=== PATIENT | female | born 2000 | race Two or more races ===

== ENCOUNTER 2024-10-22 02:48 | Inpatient (IN) | payer OTHER ==
[~2024-10-22] VITALS: Ht 154.9 cm; Wt 58.0 kg
--- NOTE | 2024-10-22 03:35 | ED.PDOC ---
GI ASSESSMENT HPI Comments 24 year old female presents to the ED with a chief complaint of abdominal pain onset yesterday (10/21/24). Patient states she has been experiencing yellow diarrhea for the past 4 days, woke up last night around 11:30, experiencing sharp, stabbing LLQ pain. Patient states she has been sober from Fentanyl for the past 3 weeks, was prescribed Suboxone, ran out of prescription 4 days ago. PMHx seizures. Denies chest pain, nausea, vomiting, shortness of breath, dysuria, hematuria, fever, chills. No other symptoms or modifying factors present at this time. Chief Complaint: Abdominal Pain Time Seen by MD: 03:20 Reviewed Notes: Medications, Allergies Allergies: Coded Allergies: No Known Drug Allergy (Verified Allergy, Unknown, 10/22/24) Information Source: Patient Mode of Arrival: Ambulatory Timing: Hours Duration: Intermittent Prehospital treatment: None Quality: Sharp, Stabbing Vomitus: None Stool: Yellow Severity: Mild Recent: None Recent Hx of: None Pain Location: LLQ Modifying Factors: Nothing Associated sign and symptoms: Diarrhea, Abdominal Pain Vital Signs Vital Signs Date Time Temp Pulse Resp B/P (MAP) Pulse Ox O2 Delivery O2 Flow Rate FiO2 10/22/24 05:32 121/98 10/22/24 04:29 100 16 96 Room Air* 0 21 10/22/24 04:29 98.9 98.9 Physical Exam General: Awake, alert and oriented. Patient appears uncomfortable Skin: Skin in warm, dry and intact. Appropriate color for ethnicity. HEENT: The head is normocephalic and atraumatic. Conjunctivae are clear without exudates or hemorrhage. Sclera is non-icteric. EOM are intact. No signs of nystagmus. Eyelids are normal in appearance without swelling or lesions. Oral mucosa is pink and moist Neck: The neck is supple with normal range of motion. No JVD. Cardiac: Heart rate and rhythm are normal. No murmurs, gallops, or rubs are auscultated. Respiratory: No signs of respiratory distress. Lung sounds are clear in all lobes bilaterally without rales, ronchi, or wheezes. Abdominal: Abdomen is soft, generally tender. Bowel sounds are present and normoactive in all four quadrants. Extremities: Upper and lower extremities are atraumatic in appearance without deformity or edema. Neurological: The patient is awake, alert and oriented to person, place, and time with normal speech. Speech is clear. There is no facial asymmetry. Psychiatric: Appropriate mood and affect. Good judgement and insight. No visual or auditory hallucinations. Review of Systems: REVIEW OF SYSTEMS: No fever, no chills, or fatigue HEENT: No sore throat, no earache, no congestion, no neck pain. Cardiac: No chest pain. No palpitations. Lungs: No shortness of breath, no cough. GI: Positive nausea, positive vomiting, positive diarrhea, no constipation, positive abdominal pain, no blood in vomit or stool : No dysuria, frequency, or urgency. No hematuria. Musculoskeletal: No joint pain , no joint swelling, no extremity edema. Skin: No rash, no itching. Neuro: No headache, no dizziness, no weakness Past Medical History PAST MEDICAL HISTORY: Denies Surgical History: Denies all surgeries CAT AND DOG BATHER History: No Pertinent CAT AND DOG BATHER History Social History Smoker: Non-Smoker Alcohol: Denies ETOH Use Drugs: Other Lives In: Home Was a procedure done? Was a procedure done?: No GI differential Dx Other Differential Diagnosis Differential diagnoses considered include: Opiate withdrawal, Abdominal aortic aneurysm, UT, esophageal rupture, intestinal obstruction, mesenteric ischemia, perforated viscus or solid organ rupture, CHF with hepatomegaly, pneumonia, abscess, appendicitis, biliary disease, diverticulitis, gastritis, gastroenteritis, hepatitis, hernia, inflammatory bowel disease, pancreatitis, peptic ulcer disease, urinary tract infection, ureteral colic, constipation, GERD, irritable syndrome, abdominal wall pain, nonspecific abdominal pain, herpes zoster. Also ruptured ectopic , ovarian torsion/cyst, tubo- ovarian abscess, PID, endometriosis, mittleschmerz. X-Ray, Labs, Meds, VS Vital Signs Date Time Temp Pulse Resp B/P (MAP) Pulse Ox O2 Delivery O2 Flow Rate FiO2 10/22/24 05:32 121/98 10/22/24 04:29 100 16 96 Room Air* 0 21 10/22/24 04:29 98.9 100 16 121/98 (106) 100 98.9 10/22/24 02:54 98.9 108 22 136/92 (107) 98 Lab Test 10/22/24 04:31 10/22/24 03:19 Range/Units Urine Color Yellow Yellow Urine Clarity Turbid H Clear Urine pH 6.5 5.0-9.0 Urine Specific [place] 1.031 1.001-1.035 Urine Protein 1+ H Negative Urine Ketones Trace Negative Urine Blood 1+ H Negative /uL Urine Nitrite Negative Negative Urine Bilirubin Negative Negative Urine Urobilinogen 2 H Negative mg/dL Urine Leukocyte Esterase Negative Negative /uL Urine RBC 6 0 - 4 /hpf Urine Microscopic WBC 3 0-5 /HPF Urine Squamous Epithelial Cells Mod <5 /hpf Urine Calcium Oxalate Crystals Few None Seen Urine Bacteria Few H None Seen /hpf Urine Mucus Moderate None Seen Urine Glucose Normal Normal mg/dL Urine Test Negative Negative White Blood Count 16.4 H 4.4-10.8 10^3/uL Red Blood Count 4.82 4.0-5.20 10^6/uL Hemoglobin 15.2 12.2-16.2 g/dL Hematocrit 46.0 36.0-46.0 % Mean Corpuscular Volume 95.5 80.0-100.0 fL Mean Corpuscular Hemoglobin 31.6 28.0-32.0 pg Mean Corpuscular Hemoglobin Concent 33.1 32.0-36.0 g/dL Red Cell Distribution Width 13.1 11.8-14.3 % Platelet Count 244 140-450 10^3/uL Mean Platelet Volume 8.9 6.9-10.8 fL Neutrophils (%) (Auto) 84.5 H 37.0-80.0 % Lymphocytes (%) (Auto) 9.5 L 10.0-50.0 % Monocytes (%) (Auto) 5.7 0.0-12.0 % Eosinophils (%) (Auto) 0.2 0.0-7.0 % Basophils (%) (Auto) 0.1 0.0-2.0 % Neutrophils # (Auto) 13.8 H 1.6-8.6 10 ^3/uL Lymphocytes # (Auto) 1.6 0.4-5.4 10 ^3/uL Monocytes # (Auto) 0.9 0-1.3 10 ^3/uL Eosinophils # (Auto) 0 0-0.8 10 ^3/uL Basophils # (Auto) 0 0-0.2 10 ^3/uL Nucleated Red Blood Cells 0.0 % Sodium Level 141 136-145 mmol/L Potassium Level 3.7 3.5-5.1 mmol/L Chloride Level 106 98-107 mmol/L Carbon Dioxide Level 25 20-31 mmol/L Anion Gap 10 5-15 Blood Urea Nitrogen 8 L 9-23 mg/dL Creatinine 0.69 0.550-1.02 mg/dL Glomerular Filtration Rate Calc 124 >90 mL/min BUN/Creatinine Ratio 11.6 10.0-20.0 Serum Glucose 113 H 74-106 mg/dL Lactic Acid Level 1.9 0.4-2.0 mmol/L Calcium Level 10.5 H 8.7-10.4 mg/dL Total Bilirubin 0.6 0.2-1.0 mg/dL Aspartate Amino Transferase (AST) 19 13-40 U/L Alanine Aminotransferase (ALT) 16 7-40 U/L Alkaline Phosphatase 77 46-116 U/L Total Protein 7.8 5.7-8.2 g/dL Albumin 5.3 H 3.2-4.8 g/dL Lipase 55 H 12-53 U/L Current Medications Medications (Trade) Dose Ordered Sig/[place] Route Start Time Stop Time Status Last Admin Sodium Chloride 1,000 ml @ 1,000 mls/hr Q1H ONCE IV 10/22/24 03:30 10/22/24 04:29 DC 10/22/24 05:10 Ketorolac Tromethamine (Toradol Injection) 30 mg ONCE ONCE IV 10/22/24 03:30 10/22/24 03:31 DC 10/22/24 04:25 Hydroxyzine Pamoate (Vistaril Oral) 50 mg ONCE ONCE PO 10/22/24 03:30 10/22/24 03:31 DC 10/22/24 05:32 Clonidine HCl (Catapres Tablet) 0.1 mg ONCE ONCE PO 10/22/24 03:30 10/22/24 03:31 DC 10/22/24 05:32 Ondansetron HCl (Zofran) 4 mg ONCE ONCE IV 10/22/24 04:30 10/22/24 04:31 DC 10/22/24 05:15 Time of 1ST Reevaluation: 03:50 Reevaluation 1ST: Unchanged Patient Education/Counseling: Diagnosis, Treatment, Prognosis Family Education/Counseling: No Family Present Departure 1 Departure Time of Disposition: 06:04 Impression: Primary Impression: Non-specific colitis Additional Impression: Abdominal pain Disposition: 09 ADMITTED INPATIENT Condition: Stable Comments 24-year-old female with colitis, abdominal pain. Critical Care Note Critical Care Time?: No Stability Stability form required: No I personally scribed for TIFFANI MALIK MD ([email or web address]) on 10/22/24 at 03:35. Electronically submitted by Teresa Nowak ([email or web address]). TIFFANI MALIK MD Oct 22, 2024 03:35
[2024-10-22 03:52] LABS: Basophils # (auto) 0 10 ^3/uL (0-0.2); Basophils % (auto) 0.1 % (0.0-2.0); Eosinophils # (auto) 0 10 ^3/uL (0-0.8); Eosinophils % (auto) 0.2 % (0.0-7.0); Hemoglobin 15.2 g/dL (12.2-16.2); Lymphocytes # (auto) 1.6 10 ^3/uL (0.4-5.4); Lymphocytes % (auto) 9.5 % (10.0-50.0); Mean Corpuscular Hemoglobin 31.6 pg (28.0-32.0); Mean Corpuscular Hgb Conc. 33.1 g/dL (32.0-36.0); Mean Corpuscular Volume 95.5 fL (80.0-100.0); Monocytes # (auto) 0.9 10 ^3/uL (0-1.3); Monocytes % (auto) 5.7 % (0.0-12.0); Neutrophils # (auto) 13.8 10 ^3/uL (1.6-8.6); Neutrophils % (auto) 84.5 % (37.0-80.0); Platelet Count (auto) 244 10^3/uL (140-450); Red Blood Cells 4.82 10^6/uL (4.0-5.20); Red Cell Distribution Width 13.1 % (11.8-14.3); White Blood Cell 16.4 10^3/uL (4.4-10.8)
[2024-10-22 04:03] LABS: Alanine Aminotransferase 16 U/L (7-40); Alkaline Phosphatase 77 U/L (46-116); Anion Gap 10 (5-15); Aspartate Aminotransferase 19 U/L (13-40); BUN/Creatinine Ratio 11.6 (10.0-20.0); Bilirubin, Total 0.6 mg/dL (0.2-1.0); Carbon Dioxide 25 mmol/L (20-31); Chloride 106 mmol/L (98-107); Potassium 3.7 mmol/L (3.5-5.1); Sodium 141 mmol/L (136-145); Total Protein 7.8 g/dL (5.7-8.2)
[2024-10-22 04:04] LABS: Albumin 5.3 g/dL (3.2-4.8); Blood Urea Nitrogen 8 mg/dL (9-23); Calcium 10.5 mg/dL (8.7-10.4); Glucose 113 mg/dL (74-106); Lipase 55 U/L (12-53)
[2024-10-22] MEDS: IOHEXOL 300 MG/ML 100ML BOTTLE IJ ONE (04:22)
[2024-10-22] MEDS: KETOROLAC TROMETH 30 MG/ML 1ML VIAL IV ONE (04:25)
[2024-10-22 04:29] VITALS: PULSE 100; RESP 16; O2SAT 96
[2024-10-22 04:42] LABS: Urine Bacteria FEW /hpf (None Seen); Urine Blood 1+ /uL (Negative); Urine Clarity Turbid (Clear); Urine Color Yellow (Yellow); Urine Mucus MODERATE (None Seen); Urine Protein, UAD 1+ (Negative); Urine Specific Gravity 1.031 (1.001-1.035); Urine Squamous Epithelial Cell MOD /hpf (<5); Urine Urobilinogen 2 mg/dL (Negative); Urine WBC 3 /HPF (0-5); Urine pH 6.5 (5.0-9.0)
[2024-10-22] MEDS: SODIUM CHLORIDE 0.9% 1,000 ML IV ONE (05:10)
[2024-10-22] MEDS: ONDANSETRON HCL 4 MG/2 ML VIAL IV ONE ×2 (05:15→07:54)
--- NOTE | 2024-10-22 05:15 | DVH ---
Exam: CT CT AB PEL WITH IV CON ONLY History: Severe left lower quadrant abdominal pain Comparison Study: None available at time of dictation. TECHNIQUE: A digital retail account executive image was obtained. During the uneventful, intravenous administration of c ontrast material, multislice data acquisition was obtained through the abdomen and pelvis. The data s et was subsequently reconstructed into axial images. Images were reviewed on a work station using a c ombination of axial and multiplanar using a variety of window levels and settings. Radiation Dose Information: CT Dose: CTDI volume is 25 mGy. Dose-length product is 250 mGy*cm FINDINGS: Lung Bases: No acute or significant lung base finding. Normal heart size. No pleural or pericardial effusion. Liver: The liver is normal in size. No focal lesions. Normal hepatic vascular enhancement. Gallbladder and Biliary Tree: Unremarkable Spleen: Unremarkable Pancreas: The pancreas is normal in appearance without focal lesions or abnormal enhancement. Adrenal Glands: Unremarkable Kidneys: Kidneys demonstrate normal symmetric enhancement without focal lesions, calculi or hydroneph rosis. Bladder: Unremarkable Bowel: The stomach is grossly normal in appearance. Extending of the sigmoid colon, which could repre sent colitis. The appendix is not visualized; however, no secondary findings of acute appendicitis i dentified. Ascites: Absent Lymphadenopathy: No mesenteric, retroperitoneal or periportal lymphadenopathy. Abdominal Wall and Mesentery: Unremarkable. Vasculature: The visualized abdominal aorta is normal in size and caliber. Abdominal and pelvic vess els demonstrate normal enhancement. Pelvic Organs: Unremarkable Musculoskeletal: No aggressive focal bony lesions, acute fractures or dislocation. Soft tissues: Unremarkable. IMPRESSION: Thickening of the sigmoid colon, which could represent colitis. All CT scans at this medical facility are performed using dose modulation techniques as appropriate t o a performed exam including the following: Automated exposure control was utilized; adjustment of th e MA and/or KV according to patient size; and use of iterative reconstruction technique.
[2024-10-22] MEDS: cloNIDine HCL 0.1 MG TAB PO ONE (05:32)
[2024-10-22] MEDS: hydrOXYzine 25 MG TAB or CAP PO ONE (05:32)
[2024-10-22] MEDS: ACETAMINOPHEN IV 1000 MG/100ML (10MG/ML) IV ONE (06:04)
[2024-10-22] MEDS ORDERED: ONDANSETRON HCL 4 MG/2 ML VIAL IV PRN (06:45)
[2024-10-22] MEDS ORDERED: MORPHINE SULFATE INJ 2 MG/ml SYRG IV PRN (06:45)
[2024-10-22] MEDS ORDERED: ACETAMINOPHEN 325 MG TAB PO PRN (06:45)
[2024-10-22] MEDS ORDERED: HYDR50CA2 (06:56)
[2024-10-22] MEDS ORDERED: GABA-1250 (06:56)
[2024-10-22] MEDS ORDERED: TRAZ-227 (06:56)
[2024-10-22] MEDS ORDERED: QUET50TA27 (06:56)
[2024-10-22] MEDS ORDERED: LEVE500T3 (06:56)
--- NOTE | 2024-10-22 07:13 | DVHHP2 ---
History of Present Illness Reason for Visit: Abdominal pain with nausea, vomiting, and diarrhea History of Present Illness Mallika Pedroza is a 24-year-old female with past medical history of seizures and anxiety who presents to the ED with abdominal pain, nausea, vomiting, and diarrhea with fentanyl withdrawals with the last 4 days. Patient reports that pain medication makes it better. Patient reports that the pain is anywhere from 4 to 10/10 throbbing contraction like and constant. Patient also reports that she has been 3 weeks clean from fentanyl and was only given a limited supply of Suboxone and she has been out since 4 days ago. Patient reports that she got it at the clinic/facility where she was at. Patient reports that she is currently homeless. She also states that she is taking Keppra on and off and when she runs out it refills but her pharmacy is located in [place]. She also reports that she does not know when the last seizure occurred. Patient also reports that she drinks about 6 shots of liquor per day. She also reports that her emesis and stool are bloody. She states that she has been having diarrhea yellowish in color with blood for 4 days. Patient denies any chest pain, shortness of breath, fever, chills, recent trauma or injury, lightheadedness, weakness, dizziness, recent sick contacts, and recent ingestion of spoiled food. FAMILY RESOURCE MANAGEMENT PROFESSOR: Seizure Psych: Anxiety Past Surgical History: None Family History: None Smoke: No ALCOHOL: heavy Drugs: Marijuana, Other (Fentanyl) Lives: Homeless Domestic Violence: Neg Review of Systems Gastrointestinal: Nausea, Vomiting, Abdominal Pain, Diarrhea Allergies: Coded Allergies: No Known Drug Allergy (Verified Allergy, Unknown, 10/22/24) Exam Vital Signs Vital Signs Date Time Temp Pulse Resp B/P (MAP) Pulse Ox O2 Delivery O2 Flow Rate FiO2 10/22/24 06:30 105/69 10/22/24 06:26 97.6 94 15 92 97.6 10/22/24 04:29 Room Air* 0 21 General Appearance: Alert, Oriented X3, Cooperative, mild distress HEENT: Atraumatic, PERRLA, EOMI, Mucous membr. moist/pink Respiratory: Normal air movement Cardiovascular: Normal S1, Normal S2, No murmurs Abdominal: Soft Extremities: No clubbing, No cyanosis, No edema, Normal pulses Skin: No rashes, No breakdown, No significant lesion Neuro: Normal speech, Strength at 5/5 X4 ext, Normal tone, Sensation intact Psych/Mental Status: Mental status NL Labs/Xrays Labs Test 10/22/24 04:31 10/22/24 03:19 Range/Units Urine Color Yellow Yellow Urine Clarity Turbid H Clear Urine pH 6.5 5.0-9.0 Urine Specific [place] 1.031 1.001-1.035 Urine Protein 1+ H Negative Urine Ketones Trace Negative Urine Blood 1+ H Negative /uL Urine Nitrite Negative Negative Urine Bilirubin Negative Negative Urine Urobilinogen 2 H Negative mg/dL Urine Leukocyte Esterase Negative Negative /uL Urine RBC 6 0 - 4 /hpf Urine Microscopic WBC 3 0-5 /HPF Urine Squamous Epithelial Cells Mod <5 /hpf Urine Calcium Oxalate Crystals Few None Seen Urine Bacteria Few H None Seen /hpf Urine Mucus Moderate None Seen Urine Glucose Normal Normal mg/dL Urine Test Negative Negative White Blood Count 16.4 H 4.4-10.8 10^3/uL Red Blood Count 4.82 4.0-5.20 10^6/uL Hemoglobin 15.2 12.2-16.2 g/dL Hematocrit 46.0 36.0-46.0 % Mean Corpuscular Volume 95.5 80.0-100.0 fL Mean Corpuscular Hemoglobin 31.6 28.0-32.0 pg Mean Corpuscular Hemoglobin Concent 33.1 32.0-36.0 g/dL Red Cell Distribution Width 13.1 11.8-14.3 % Platelet Count 244 140-450 10^3/uL Mean Platelet Volume 8.9 6.9-10.8 fL Neutrophils (%) (Auto) 84.5 H 37.0-80.0 % Lymphocytes (%) (Auto) 9.5 L 10.0-50.0 % Monocytes (%) (Auto) 5.7 0.0-12.0 % Eosinophils (%) (Auto) 0.2 0.0-7.0 % Basophils (%) (Auto) 0.1 0.0-2.0 % Neutrophils # (Auto) 13.8 H 1.6-8.6 10 ^3/uL Lymphocytes # (Auto) 1.6 0.4-5.4 10 ^3/uL Monocytes # (Auto) 0.9 0-1.3 10 ^3/uL Eosinophils # (Auto) 0 0-0.8 10 ^3/uL Basophils # (Auto) 0 0-0.2 10 ^3/uL Nucleated Red Blood Cells 0.0 % Sodium Level 141 136-145 mmol/L Potassium Level 3.7 3.5-5.1 mmol/L Chloride Level 106 98-107 mmol/L Carbon Dioxide Level 25 20-31 mmol/L Anion Gap 10 5-15 Blood Urea Nitrogen 8 L 9-23 mg/dL Creatinine 0.69 0.550-1.02 mg/dL Glomerular Filtration Rate Calc 124 >90 mL/min BUN/Creatinine Ratio 11.6 10.0-20.0 Serum Glucose 113 H 74-106 mg/dL Lactic Acid Level 1.9 0.4-2.0 mmol/L Calcium Level 10.5 H 8.7-10.4 mg/dL Total Bilirubin 0.6 0.2-1.0 mg/dL Aspartate Amino Transferase (AST) 19 13-40 U/L Alanine Aminotransferase (ALT) 16 7-40 U/L Alkaline Phosphatase 77 46-116 U/L Total Protein 7.8 5.7-8.2 g/dL Albumin 5.3 H 3.2-4.8 g/dL Lipase 55 H 12-53 U/L Exam: CT CT AB PEL WITH IV CON ONLY History: Severe left lower quadrant abdominal pain Comparison Study: None available at time of dictation. TECHNIQUE: A digital cnc mill and lathe operator image was obtained. During the uneventful, intravenous administration of contrast material, multislice data acquisition was obtained through the abdomen and pelvis. The data set was subsequently reconstructed into axial images. Images were reviewed on a work station using a combination of axial and multiplanar using a variety of window levels and settings. Radiation Dose Information: CT Dose: CTDI volume is 25 mGy. Dose-length product is 250 mGy*cm FINDINGS: Lung Bases: No acute or significant lung base finding. Normal heart size. No pleural or pericardial effusion. Liver: The liver is normal in size. No focal lesions. Normal hepatic vascular enhancement. Gallbladder and Biliary Tree: Unremarkable Spleen: Unremarkable Pancreas: The pancreas is normal in appearance without focal lesions or abnormal enhancement. Adrenal Glands: Unremarkable Kidneys: Kidneys demonstrate normal symmetric enhancement without focal lesions, calculi or hydronephrosis. Bladder: Unremarkable Bowel: The stomach is grossly normal in appearance. Extending of the sigmoid colon, which could represent colitis. The appendix is not visualized; however, no secondary findings of acute appendicitis identified. Ascites: Absent Lymphadenopathy: No mesenteric, retroperitoneal or periportal lymphadenopathy. Abdominal Wall and Mesentery: Unremarkable. Vasculature: The visualized abdominal aorta is normal in size and caliber. Abdominal and pelvic vessels demonstrate normal enhancement. Pelvic Organs: Unremarkable Musculoskeletal: No aggressive focal bony lesions, acute fractures or dislocation. Soft tissues: Unremarkable. IMPRESSION: Thickening of the sigmoid colon, which could represent colitis. Assessment/Plan Assessment/Plan Assessment Intractable abdominal pain likely due to colitis Leukocytosis likely due to colitis Hematemesis Rule out GI bleed Hyperlipasemia ETOH abuse Fentanyl abuse possible withdrawals History of seizure missed doses History of anxiety Plan Admit to tele for monitoring [facility] protocol UA CT abdomen and pelvis noted Antiemetics Antihypertensives Anxiolytics Pain management NS 1L given ED IV fluids NPO for now Lipase Acute hepatitis panel Lactic HCG PPIs Stool occult blood IV antibiotics T bili PT/INR Neuro consult GI consult Counseled patient on ETOH abuse and substance abuse DVT prophylaxis not indicated patient ambulating PUD prophylaxis in place Home meds reconciled Discussed plan of care with patient and nurse Pharmacy is reconciling the Suboxone on their end as I am unable to place it on my end. Plan discussed with: Patient Date of Service: Oct 22, 2024 Billing Provider: KIM HERNÁNDEZ Common Visit Codes: [id number] INP/OBS CARE (HIGH) KIM HERNÁNDEZ Oct 22, 2024 07:13
[2024-10-22 07:31] LABS: Magnesium 2.1 mg/dL (1.6-2.6)
[2024-10-22 07:32] LABS: Cannabinoid Screen, Urine Pos (NEGATIVE)
[2024-10-22 07:33] LABS: Bilirubin, Total 0.6 mg/dL (0.2-1.0)
[2024-10-22 07:34] LABS: Barbiturate Scree,Urine Neg (NEGATIVE); Opiate Scree,Urine Neg (NEGATIVE)
[2024-10-22 07:35] LABS: Amphetamine Screen, Urine Neg (NEGATIVE); Benzodiazephine Screen, Urine Neg (NEGATIVE); Cocaine Screen, Urine Neg (NEGATIVE); Phencyclidine Screen, Urine Neg (NEGATIVE)
[2024-10-22 07:43] LABS: Prothrombin Time 10.6 sec (9.3-11.8)
[2024-10-22] MEDS: THIAMINE HCL 100 MG TAB PO ONE (07:54)
[2024-10-22] MEDS: chlordiazePOXIDE HCL 25 MG CAP PO ONE (07:55)
[2024-10-22] MEDS: PIPERACILLIN-TAZOB 3.375GM 100 ML IV ONE (07:55)
[2024-10-22] MEDS: FOLIC ACID 1 MG TAB PO ONE (07:56)
[2024-10-22] MEDS: SODIUM CHLORIDE 0.9% 1,000 ML IV SCH (07:56)
[2024-10-22] MEDS: MULTIPLE VITAMIN TAB PO ONE (08:01)
[2024-10-22] MEDS: PANTOPRAZOLE 40 MG/10 ML VIAL INJ IV SCH (08:01)
[2024-10-22] MEDS: BUPRENORPHINE -NALOXONE 2-0.5mg SL TAB SL SCH (08:01)
[2024-10-22] MEDS: HYDROcodone-ACET 5/325MG TAB PO PRN (08:03)
[2024-10-22 09:23] VITALS: PULSE 60; RESP 16; O2SAT 98
[2024-10-22 10:39] LABS: Hepatitis A Ab IgM Negative; Hepatitis B Core IgM Negative (Negative); Hepatitis B Surface Antigen Negative (Negative); Hepatitis C Antibody Negative (Negative)
[2024-10-22] MEDS: AMPICILLIN & SULBACTAM SODIUM 3 GM in SODIUM CHL 0.9% 100 ML IV SCH (12:45)
[2024-10-22 13:00] VITALS: BP 100/63; PULSE 76; RESP 16; O2SAT 96
[2024-10-22] MEDS ORDERED: CYCLOBENZAPRINE HCL 10 MG TAB PO PRN (13:00)
[2024-10-22] MEDS ORDERED: IBUPROFEN 600 MG TAB PO PRN (13:00)
[2024-10-22] MEDS: GABAPENTIN 300 MG CAP PO SCH (13:56)
[2024-10-22] MEDS: D5W/SOD CHL 0.45% 1,000 ML IV ONE (13:56)
[2024-10-22] MEDS: QUEtiapine FUMARATE 25 MG TAB PO ONE (13:56)
[2024-10-22] MEDS ORDERED: PIPERACILLIN-TAZOB 3.375GM 100 ML IV SCH (14:00)
--- NOTE | 2024-10-22 14:21 | DVHPN2 ---
Subjective 10/22-patient wants to try clear liquid diet. Abdominal pain epigastrium is improving. Diarrhea is improving. UDS positive for fentanyl, patient was supposed to be status post rehab and on Suboxone. Suboxone will be continued inpatient. She needs a refill of Suboxone. Telepsych consult for eval for relapse and Suboxone refill outpatient until patient has a Suboxone clinic follow up. CT with colitis. We will continue antibiotics. Reviewed: H&P Changes from previous H/P or p: No Changes General: Per HPI Objective Vitals Vital Signs Date Time Temp Pulse Resp B/P (MAP) Pulse Ox O2 Delivery O2 Flow Rate FiO2 10/22/24 13:00 76 16 100/63 (75) 96 10/22/24 07:35 98.2 98.2 10/22/24 07:35 Room Air 10/22/24 04:29 0 21 Exam GEN: Healthy appearing, well-developed, NAD. HEENT: NC/AT; dry mucous membranes CV: RRR, no m/r/g. LUNGS: CTAB, no w/r/c. ABD: Epigastrium tender to palpation, bowel sounds hypoactive EXT: skin Warm, well perfused. no rashes. No clubbing, cyanosis, or edema. NEURO: Ambulating with no limitations. No focal deficits. Medications Current Medications Medications Dose Ordered Sig/[place] Route Start Time Stop Time Status Last Admin Dose Admin Sodium Chloride 1,000 ml @ 100 mls/hr Q10H IV 10/22/24 06:45 10/22/24 07:56 100 MLS/HR Ondansetron HCl 4 mg Q4HP PRN IV 10/22/24 06:45 Acetaminophen 650 mg Q6HP PRN PO 10/22/24 06:45 Thiamine HCl 100 mg DAILY PO 10/23/24 10:00 Folic Acid 1 mg DAILY PO 10/23/24 10:00 Multivitamins 1 tab DAILY PO 10/23/24 10:00 Pantoprazole Sodium 40 mg DAILY IV 10/22/24 10:00 10/22/24 08:01 40 MG Buprenorphine HCl 1 tab DAILY SL 10/22/24 10:00 10/22/24 08:01 1 TAB Ampicillin Sodium/ Sulbactam Sodium 3 gm/Sodium Chloride 100 ml @ 100 mls/hr Q6H IV 10/22/24 12:45 Gabapentin 300 mg TID PO 10/22/24 14:00 10/22/24 13:56 300 MG Levetiracetam 500 mg BID PO 10/22/24 22:00 Trazodone HCl 50 mg HS PO 10/22/24 22:00 Quetiapine Fumarate 50 mg HS PO 10/22/24 22:00 Ibuprofen 600 mg Q8HP PRN PO 10/22/24 13:00 Ketorolac Tromethamine 30 mg Q6HPRN PRN IV 10/22/24 13:00 10/27/24 12:59 Dicyclomine HCl 20 mg Q6H PRN PO 10/22/24 13:00 Cyclobenzaprine HCl 10 mg Q8HPRN PRN PO 10/22/24 13:00 Laboratory Results Laboratory Tests 10/22/24 03:19 Chemistry Test 10/22/24 03:19 Albumin 5.3 g/dL (3.2-4.8) H Calcium Level 10.5 mg/dL (8.7-10.4) H Magnesium Level 2.1 mg/dL (1.6-2.6) Total Protein 7.8 g/dL (5.7-8.2) Coagulation Test 10/22/24 03:19 Prothrombin Time 10.6 sec (9.3-11.8) Prothrombin Time INR 1.00 (0.9-1.15) Lipid panel Test 10/22/24 03:19 Lipase 55 U/L (12-53) H LFT Test 10/22/24 03:19 Alanine Aminotransferase (ALT) 16 U/L (7-40) Alkaline Phosphatase 77 U/L (46-116) Aspartate Amino Transferase (AST) 19 U/L (13-40) Total Bilirubin 0.6 mg/dL (0.2-1.0) Urinalysis Test 10/22/24 04:31 Urine Color Yellow (Yellow) Urine Clarity Turbid (Clear) H Urine pH 6.5 (5.0-9.0) Urine Specific [place] 1.031 (1.001-1.035) Urine Protein 1+ (Negative) H Urine Ketones Trace (Negative) Urine Blood 1+ /uL (Negative) H Urine Nitrite Negative (Negative) Urine Bilirubin Negative (Negative) Urine Urobilinogen 2 mg/dL (Negative) H Urine Leukocyte Esterase Negative /uL (Negative) Urine RBC 6 /hpf (0 - 4) Urine Microscopic WBC 3 /HPF (0-5) Urine Squamous Epithelial Cells Mod /hpf (<5) Urine Calcium Oxalate Crystals Few (None Seen) Urine Bacteria Few /hpf (None Seen) H Urine Mucus Moderate (None Seen) Urine Glucose Normal mg/dL (Normal) Urine Test Negative (Negative) Labs and/or images reviewed: Labs reviewed by me, Image(s) reviewed by me Assessment/Plan Assessment/Plan 10/22-patient wants to try clear liquid diet. Abdominal pain epigastrium is improving. Diarrhea is improving. UDS positive for fentanyl, patient was supposed to be status post rehab and on Suboxone. Suboxone will be continued inpatient. She needs a refill of Suboxone. Telepsych consult for eval for relapse and Suboxone refill outpatient until patient has a Suboxone clinic follow up. CT with colitis. We will continue antibiotics. Colitis due to Gastroenteritis, infectious etiology likely Opiate withdrawal Opiate addiction relapse likely P.o. intolerance Intractable diarrhea History of fentanyl abuse, ongoing Suboxone therapy History of seizures History of anxiety PTSD -continue home meds for seizure and anxiety -hold off loperamide as this could be bacterial gastroenteritis -Telepsych consult, continue Suboxone -Social evaluated patient, patient was homeless, resources to be given to patient -P.r.n. medications for abdominal cramps (Bentyl) and muscle spasms (Flexeril) -pain control nonopioid only, Tylenol, ibuprofen, Toradol -IV fluids, trial clear liquid diet we will advance to full liquid as tolerated Clear liquid diet DVT prophylaxis ambulating GI prophylaxis-Protonix IV daily Med surge Full code Plan discussed with: Patient My Orders Orders - HI RAHMAN MD Procedure Category Date Status Time Clear Liq Diet DIET 10/22/24 Transmitted Lunch *Tele Psych Consult CONS 10/22/24 Transmitted 12:44 Ampicillin & PHA 10/22/24 In Process Sulbactam Sodium 12:45 D5w/Sod Chl 0.45% PHA 10/22/24 In Process (D5w 1/2ns) 12:45 Gabapentin Capsule PHA 10/22/24 In Process (Neurontin Capsule) 14:00 Levetiracetam Tablet PHA 10/22/24 In Process (Keppra Tablet) 22:00 Trazodone Hcl PHA 10/22/24 In Process (Desyrel) 22:00 Quetiapine Fumarate PHA 10/22/24 In Process Tablet (Seroquel Tab 22:00 Ibuprofen Tablet PHA 10/22/24 In Process (Motrin Tablet) 13:00 Ketorolac Injection PHA 10/22/24 In Process (Toradol Injection) 13:00 Dicyclomine Capsule PHA 10/22/24 In Process (Bentyl Capsule) 13:00 Cyclobenzaprine PHA 10/22/24 In Process Tablet (Flexeril 13:00 Date of Service: Oct 22, 2024 Billing Provider: HI RAHMAN MD Common Visit Codes: [id number] INP/OBS CARE(HIGH) HI RAHMAN MD Oct 22, 2024 14:21
[2024-10-22 18:08] VITALS: BP 114/66; PULSE 86; RESP 18; TEMP 98.5; O2SAT 100
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
[2024-10-22 20:00] VITALS: PULSE 80; PULSE 88; RESP 18
--- NOTE | 2024-10-22 20:26 | DVHINCON2 ---
Date of service: Oct 22, [address] Tyson Reason for Consultation Abdominal pain nausea vomiting and diarrhea History of Present Illness This 24-year-old female presented with complaints of abdominal pain nausea anorexia vomiting diarrhea vomiting patient had fentanyl through withdrawals in the last four days apparently patient has been having abdominal discomfort in one pain medications patient has been given [place] and he is but she is better now. Patient had apparently has history of seizures and anxiety also Fentanyl addiction and has been on withdrawal patient has been also on Suboxone. Which she has been out No gross hematemesis or melena Past Medical History History of fentanyl addiction seizure disorder marijuana abuse Past Surgical History None Family History: Patient reports no known family medical history. Family History Unremarkable Social History Denied drinking but smokes marijuana and also takes fentanyl Allergies: Coded Allergies: No Known Drug Allergy (Verified Allergy, Unknown, 10/22/24) Home Meds Reported Medications Trazodone Hcl (Trazodone Hcl) 50 Mg Tab, 1 10/22/24 Levetiracetam (Levetiracetam) 500 Mg Tab, 1 10/22/24 Gabapentin (Gabapentin) 300 Mg Cap, 1 10/22/24 Quetiapine Fumerate (QUETIAPINE FUMARATE) 50 Mg Tab 10/22/24 Hydroxyzine Pamoate (Hydroxyzine Pamoate) 50 Mg Cap, 1 10/22/24 Current Medications Current Medications Medications (Trade) Dose Ordered Sig/[place] Route PRN Reason Start Time Stop Time Status Last Admin Sodium Chloride 1,000 ml @ 100 mls/hr Q10H IV 10/22/24 06:45 10/22/24 07:56 Acetaminophen/ Hydrocodone Bitart ([place] 5/325MG Tab) 1 tab Q4HP PRN PO MODERATE PAIN (4-6 PAIN SCALE) 10/22/24 06:45 10/22/24 12:56 DC 10/22/24 08:03 Ondansetron HCl (Zofran) 4 mg Q4HP PRN IV NAUSEA / VOMITING 10/22/24 06:45 Acetaminophen (Tylenol Tablet) 650 mg Q6HP PRN PO PAIN SCALE 1-3 OR TEMP>100.4 10/22/24 06:45 Morphine Sulfate 2 mg Q4HPRN PRN IV SEVERE PAIN (7-10 PAIN SCALE) 10/22/24 06:45 10/22/24 12:56 DC Thiamine HCl 100 mg DAILY PO 10/23/24 10:00 Folic Acid 1 mg DAILY PO 10/23/24 10:00 Multivitamins (Mvi Tab) 1 tab DAILY PO 10/23/24 10:00 Pantoprazole Sodium (Protonix) 40 mg DAILY IV 10/22/24 10:00 10/22/24 08:01 Piperacillin Sod/ Tazobactam Sod 100 ml @ 25 mls/hr Q8HR IV 10/22/24 14:00 10/22/24 12:47 DC Buprenorphine HCl (Buprenorphine HCl/Naloxon 2-0.5 Mg) 1 tab DAILY SL 10/22/24 10:00 10/22/24 08:01 Ampicillin Sodium/ Sulbactam Sodium 3 gm/Sodium Chloride 100 ml @ 100 mls/hr Q6H IV 10/22/24 12:45 10/22/24 18:17 Gabapentin (Neurontin Capsule) 300 mg TID PO 10/22/24 14:00 10/22/24 13:56 Levetiracetam (Keppra Tablet) 500 mg BID PO 10/22/24 22:00 Trazodone HCl (Desyrel) 50 mg HS PO 10/22/24 22:00 Quetiapine Fumarate (SEROquel TABLET) 50 mg HS PO 10/22/24 22:00 Ibuprofen (Motrin Tablet) 600 mg Q8HP PRN PO MODERATE PAIN (4-6 PAIN SCALE) 10/22/24 13:00 Ketorolac Tromethamine (Toradol Injection) 30 mg Q6HPRN PRN IV SEVERE PAIN (7-10 PAIN SCALE) 10/22/24 13:00 10/27/24 12:59 Dicyclomine HCl (Bentyl Capsule) 20 mg Q6H PRN PO abdominal cramps 10/22/24 13:00 Cyclobenzaprine HCl (Flexeril Tablet) 10 mg Q8HPRN PRN PO FOR MUSCLE SPASM 10/22/24 13:00 Review of Systems Noncontributory Vital Signs Vital Signs Date Time Temp Pulse Resp B/P (MAP) Pulse Ox O2 Delivery O2 Flow Rate FiO2 10/22/24 13:00 76 16 100/63 (75) 96 10/22/24 09:23 Room Air* 0 21 10/22/24 07:35 98.2 98.2 Physical Exam Originally built and nourished female in no acute distress but chronically ill looking and complaining of pain withdrawal pain Vitals stable HEENT examination no pallor or icterus Lungs are clear Vascular unremarkable abdomen is soft no tenderness no rigidity no guarding no masses Neuro grossly intact Labs/Diagnostic Data Labs Test 10/22/24 04:31 10/22/24 03:19 Range/Units Urine Color Yellow Yellow Urine Clarity Turbid H Clear Urine pH 6.5 5.0-9.0 Urine Specific [place] 1.031 1.001-1.035 Urine Protein 1+ H Negative Urine Ketones Trace Negative Urine Blood 1+ H Negative /uL Urine Nitrite Negative Negative Urine Bilirubin Negative Negative Urine Urobilinogen 2 H Negative mg/dL Urine Leukocyte Esterase Negative Negative /uL Urine RBC 6 0 - 4 /hpf Urine Microscopic WBC 3 0-5 /HPF Urine Squamous Epithelial Cells Mod <5 /hpf Urine Calcium Oxalate Crystals Few None Seen Urine Bacteria Few H None Seen /hpf Urine Mucus Moderate None Seen Urine Glucose Normal Normal mg/dL Urine Test Negative Negative Urine Opiates Screen Neg NEGATIVE Urine Fentanyl Screen Pos NEGATIVE Urine Barbiturates Screen Neg NEGATIVE Urine Phencyclidine Screen Neg NEGATIVE Urine Amphetamines Screen Neg NEGATIVE Urine Benzodiazepines Screen Neg NEGATIVE Urine Cocaine Screen Neg NEGATIVE Urine Cannabinoids Screen Pos NEGATIVE White Blood Count 16.4 H 4.4-10.8 10^3/uL Red Blood Count 4.82 4.0-5.20 10^6/uL Hemoglobin 15.2 12.2-16.2 g/dL Hematocrit 46.0 36.0-46.0 % Mean Corpuscular Volume 95.5 80.0-100.0 fL Mean Corpuscular Hemoglobin 31.6 28.0-32.0 pg Mean Corpuscular Hemoglobin Concent 33.1 32.0-36.0 g/dL Red Cell Distribution Width 13.1 11.8-14.3 % Platelet Count 244 140-450 10^3/uL Mean Platelet Volume 8.9 6.9-10.8 fL Neutrophils (%) (Auto) 84.5 H 37.0-80.0 % Lymphocytes (%) (Auto) 9.5 L 10.0-50.0 % Monocytes (%) (Auto) 5.7 0.0-12.0 % Eosinophils (%) (Auto) 0.2 0.0-7.0 % Basophils (%) (Auto) 0.1 0.0-2.0 % Neutrophils # (Auto) 13.8 H 1.6-8.6 10 ^3/uL Lymphocytes # (Auto) 1.6 0.4-5.4 10 ^3/uL Monocytes # (Auto) 0.9 0-1.3 10 ^3/uL Eosinophils # (Auto) 0 0-0.8 10 ^3/uL Basophils # (Auto) 0 0-0.2 10 ^3/uL Nucleated Red Blood Cells 0.0 % Prothrombin Time 10.6 9.3-11.8 sec Prothrombin Time INR 1.00 0.9-1.15 Sodium Level 141 136-145 mmol/L Potassium Level 3.7 3.5-5.1 mmol/L Chloride Level 106 98-107 mmol/L Carbon Dioxide Level 25 20-31 mmol/L Anion Gap 10 5-15 Blood Urea Nitrogen 8 L 9-23 mg/dL Creatinine 0.69 0.550-1.02 mg/dL Glomerular Filtration Rate Calc 124 >90 mL/min BUN/Creatinine Ratio 11.6 10.0-20.0 Serum Glucose 113 H 74-106 mg/dL Lactic Acid Level 1.9 0.4-2.0 mmol/L Calcium Level 10.5 H 8.7-10.4 mg/dL Magnesium Level 2.1 1.6-2.6 mg/dL Total Bilirubin 0.6 0.2-1.0 mg/dL Aspartate Amino Transferase (AST) 19 13-40 U/L Alanine Aminotransferase (ALT) 16 7-40 U/L Alkaline Phosphatase 77 46-116 U/L Total Protein 7.8 5.7-8.2 g/dL Albumin 5.3 H 3.2-4.8 g/dL Lipase 55 H 12-53 U/L Plasma/Serum Blood Alcohol < 3.0 <10 mg/dL Hepatitis A IgM Antibody Negative Hepatitis B Surface Antigen Negative Negative Hepatitis B Core IgM Antibody Negative Negative Hepatitis C Antibody Negative Negative Assessment 24-year-old with a history of seizures anxiety and marijuana and fentanyl abuse admitted with fentanyl and withdrawal and nausea vomiting diarrhea etc. no hematemesis melena heme abdomen is soft no tenderness no rigidity no guarding labs showed that the white count is slightly increased hemoglobin is fine clinical impression is nausea vomiting diarrhea for possible fat fentanyl we will travel symptoms possible gastritis or ulcer disease also can not be excluded CT scan showed some mild thickening of the sigmoid colon which could represent just nonspecific findings from possible diarrhea Plan/Recommendation We will recommend to follow the labs closely Watch for symptoms of withdrawal Watch for pancreatitis or other pathology If bleeding or diarrhea and other symptoms persist may need further evaluation as necessary including stool studies endoscopic workup etc. For the time being conservative treatment and increase the diet and see Thank you Dr. Cortez Plan discussed with: Patient JESSICA CORTEZ MD Oct 22, 2024 20:26
[2024-10-22 21:00] VITALS: BP 120/69; PULSE 98; RESP 19; TEMP 97.9; O2SAT 95
--- NOTE | 2024-10-22 21:34 | DVHINCON2 ---
Date of service: Oct 22, [address] Tyson Reason for Consultation Seizure History of Present Illness Ms. Pedroza is a 24 years old right-handed female with a history of anxiety, depression, PTSD, bipolar disorder, she came to the [facility] on 10/22/2024 with a chief complaint of abdominal pain, diarrhea, and she was had nausea and vomiting in the emergency room, the patient was has a history of seizure Since her age of [age] years old, the patient was has had episodic event where she became nonresponsive, fell down, shaking all over body with company amnesia, she was up biting and incontinence during the event, this happened once or twice yearly with the last seizure four months ago, she has seen doctors and she was said to have seizure disorder, she denies symptoms olfactory hallucination, she is on Keppra 500 mg b.i.d.. She reports that her seizures typically stress related, she was no history of traumatic brain injury, intracranial infection UDS, 10/22/2024: Fentanyl, cannabinoids Plasma alcohol, 10/22/2024: <3 Urinalysis, 10/23/2019: WBC: Three, urine leukocyte esterase: Negative WBC/HB/PLT/MCV, 10/22/2024: 16.4/15.2/244/95.5 CMP, 11/08/2024: Unremarkable Hepatitis panel, 08/24/24: Negative Past Medical History Anxiety, depression, bipolar disorder, PTSD Past Surgical History No surgeries Family History: Patient reports no known family medical history. Family History One sister had at least one seizure in her life Social History She smoke marijuana and tobacco, she drinks six shots every single day, denies drug abuse (UDS was positive for fentanyl and cannabinoids, tele psych documented opiate abuse, rehab, and Suboxone treatment) Allergies: Coded Allergies: No Known Drug Allergy (Verified Allergy, Unknown, 10/22/24) Home Meds Reported Medications Trazodone Hcl (Trazodone Hcl) 50 Mg Tab, 1 10/22/24 Levetiracetam (Levetiracetam) 500 Mg Tab, 1 10/22/24 Gabapentin (Gabapentin) 300 Mg Cap, 1 10/22/24 Quetiapine Fumerate (QUETIAPINE FUMARATE) 50 Mg Tab 10/22/24 Hydroxyzine Pamoate (Hydroxyzine Pamoate) 50 Mg Cap, 1 10/22/24 Current Medications Current Medications Medications (Trade) Dose Ordered Sig/[place] Route PRN Reason Start Time Stop Time Status Last Admin Sodium Chloride 1,000 ml @ 100 mls/hr Q10H IV 10/22/24 06:45 10/22/24 07:56 Acetaminophen/ Hydrocodone Bitart ([place] 5/325MG Tab) 1 tab Q4HP PRN PO MODERATE PAIN (4-6 PAIN SCALE) 10/22/24 06:45 10/22/24 12:56 DC 10/22/24 08:03 Ondansetron HCl (Zofran) 4 mg Q4HP PRN IV NAUSEA / VOMITING 10/22/24 06:45 Acetaminophen (Tylenol Tablet) 650 mg Q6HP PRN PO PAIN SCALE 1-3 OR TEMP>100.4 10/22/24 06:45 Morphine Sulfate 2 mg Q4HPRN PRN IV SEVERE PAIN (7-10 PAIN SCALE) 10/22/24 06:45 10/22/24 12:56 DC Thiamine HCl 100 mg DAILY PO 10/23/24 10:00 Folic Acid 1 mg DAILY PO 10/23/24 10:00 Multivitamins (Mvi Tab) 1 tab DAILY PO 10/23/24 10:00 Pantoprazole Sodium (Protonix) 40 mg DAILY IV 10/22/24 10:00 10/22/24 08:01 Piperacillin Sod/ Tazobactam Sod 100 ml @ 25 mls/hr Q8HR IV 10/22/24 14:00 10/22/24 12:47 DC Buprenorphine HCl (Buprenorphine HCl/Naloxon 2-0.5 Mg) 1 tab DAILY SL 10/22/24 10:00 10/22/24 08:01 Ampicillin Sodium/ Sulbactam Sodium 3 gm/Sodium Chloride 100 ml @ 100 mls/hr Q6H IV 10/22/24 12:45 10/22/24 18:17 Gabapentin (Neurontin Capsule) 300 mg TID PO 10/22/24 14:00 10/22/24 13:56 Levetiracetam (Keppra Tablet) 500 mg BID PO 10/22/24 22:00 Trazodone HCl (Desyrel) 50 mg HS PO 10/22/24 22:00 Quetiapine Fumarate (SEROquel TABLET) 50 mg HS PO 10/22/24 22:00 Ibuprofen (Motrin Tablet) 600 mg Q8HP PRN PO MODERATE PAIN (4-6 PAIN SCALE) 10/22/24 13:00 Ketorolac Tromethamine (Toradol Injection) 30 mg Q6HPRN PRN IV SEVERE PAIN (7-10 PAIN SCALE) 10/22/24 13:00 10/27/24 12:59 Dicyclomine HCl (Bentyl Capsule) 20 mg Q6H PRN PO abdominal cramps 10/22/24 13:00 Cyclobenzaprine HCl (Flexeril Tablet) 10 mg Q8HPRN PRN PO FOR MUSCLE SPASM 10/22/24 13:00 Review of Systems As above, the other systems are negative Vital Signs Vital Signs Date Time Temp Pulse Resp B/P (MAP) Pulse Ox O2 Delivery O2 Flow Rate FiO2 10/22/24 20:00 80 18 Room Air* 0 21 10/22/24 13:00 100/63 (75) 96 10/22/24 07:35 98.2 98.2 Physical Exam GENERAL EXAM: General: the patient is well developed and nourished. No acute distress. HEENT: Normocephalic, neck is supple, no carotid bruits. No mass RESPIRATORY: Normal respiratory effort with symmetrical lung expansion. Lungs clear to auscultation. CARDIOVASCULAR: Regular rate and rhythm with no murmurs. S1, S2. ABDOMEN: Soft, nontender, normal bowel sound NEUROLOGICAL: MENTAL STATUS: Awake and alert. Oriented to person, place, time and general circumstances. Able to give personal history SPEECH, LANGUAGE, HIGHER CORTICAL FUNCTION: no aphasia or dysathria. CRANIAL NERVES: #2: Intact visual lerma to confrontation. The optic discs were sharp #3,4,6: Pupils are equal, round and reactive. EOMs full and conjugate. No nystagmus. #5: Facial sensation intact in all three divisions bilaterally. Mandibular strength intact. #7: Facial muscles symmetrical and strength intact. #8: Hearing grossly normal to voice. #9,10: Uvula and soft palate rise in the midline. Swallow and voice are normal. #11: Trapezius and sternomastoid strength intact bilaterally. #12: Tongue midline. No fasciculations or atrophy. SENSATION: Sensation to touch and pinprick is normal. MOTOR: Normal tone in the upper and lower extremity. Normal muscle bulk. No fasciculations. No abnormal movements or posturing. Muscle strength of the major groups in the upper extremities is 5/5. Muscle strength of the major groups in the lower extremities is 5/5. REFLEXES: Deep tendon reflexes are symmetrical. No pathological reflexes. CEREBELLAR/COORDINATION: Finger to nose and heel to mark are normal bilaterally. GAIT/STATION: deferred. Labs/Diagnostic Data Labs Test 10/22/24 04:31 10/22/24 03:19 Range/Units Urine Color Yellow Yellow Urine Clarity Turbid H Clear Urine pH 6.5 5.0-9.0 Urine Specific [place] 1.031 1.001-1.035 Urine Protein 1+ H Negative Urine Ketones Trace Negative Urine Blood 1+ H Negative /uL Urine Nitrite Negative Negative Urine Bilirubin Negative Negative Urine Urobilinogen 2 H Negative mg/dL Urine Leukocyte Esterase Negative Negative /uL Urine RBC 6 0 - 4 /hpf Urine Microscopic WBC 3 0-5 /HPF Urine Squamous Epithelial Cells Mod <5 /hpf Urine Calcium Oxalate Crystals Few None Seen Urine Bacteria Few H None Seen /hpf Urine Mucus Moderate None Seen Urine Glucose Normal Normal mg/dL Urine Test Negative Negative Urine Opiates Screen Neg NEGATIVE Urine Fentanyl Screen Pos NEGATIVE Urine Barbiturates Screen Neg NEGATIVE Urine Phencyclidine Screen Neg NEGATIVE Urine Amphetamines Screen Neg NEGATIVE Urine Benzodiazepines Screen Neg NEGATIVE Urine Cocaine Screen Neg NEGATIVE Urine Cannabinoids Screen Pos NEGATIVE White Blood Count 16.4 H 4.4-10.8 10^3/uL Red Blood Count 4.82 4.0-5.20 10^6/uL Hemoglobin 15.2 12.2-16.2 g/dL Hematocrit 46.0 36.0-46.0 % Mean Corpuscular Volume 95.5 80.0-100.0 fL Mean Corpuscular Hemoglobin 31.6 28.0-32.0 pg Mean Corpuscular Hemoglobin Concent 33.1 32.0-36.0 g/dL Red Cell Distribution Width 13.1 11.8-14.3 % Platelet Count 244 140-450 10^3/uL Mean Platelet Volume 8.9 6.9-10.8 fL Neutrophils (%) (Auto) 84.5 H 37.0-80.0 % Lymphocytes (%) (Auto) 9.5 L 10.0-50.0 % Monocytes (%) (Auto) 5.7 0.0-12.0 % Eosinophils (%) (Auto) 0.2 0.0-7.0 % Basophils (%) (Auto) 0.1 0.0-2.0 % Neutrophils # (Auto) 13.8 H 1.6-8.6 10 ^3/uL Lymphocytes # (Auto) 1.6 0.4-5.4 10 ^3/uL Monocytes # (Auto) 0.9 0-1.3 10 ^3/uL Eosinophils # (Auto) 0 0-0.8 10 ^3/uL Basophils # (Auto) 0 0-0.2 10 ^3/uL Nucleated Red Blood Cells 0.0 % Prothrombin Time 10.6 9.3-11.8 sec Prothrombin Time INR 1.00 0.9-1.15 Sodium Level 141 136-145 mmol/L Potassium Level 3.7 3.5-5.1 mmol/L Chloride Level 106 98-107 mmol/L Carbon Dioxide Level 25 20-31 mmol/L Anion Gap 10 5-15 Blood Urea Nitrogen 8 L 9-23 mg/dL Creatinine 0.69 0.550-1.02 mg/dL Glomerular Filtration Rate Calc 124 >90 mL/min BUN/Creatinine Ratio 11.6 10.0-20.0 Serum Glucose 113 H 74-106 mg/dL Lactic Acid Level 1.9 0.4-2.0 mmol/L Calcium Level 10.5 H 8.7-10.4 mg/dL Magnesium Level 2.1 1.6-2.6 mg/dL Total Bilirubin 0.6 0.2-1.0 mg/dL Aspartate Amino Transferase (AST) 19 13-40 U/L Alanine Aminotransferase (ALT) 16 7-40 U/L Alkaline Phosphatase 77 46-116 U/L Total Protein 7.8 5.7-8.2 g/dL Albumin 5.3 H 3.2-4.8 g/dL Lipase 55 H 12-53 U/L Plasma/Serum Blood Alcohol < 3.0 <10 mg/dL Hepatitis A IgM Antibody Negative Hepatitis B Surface Antigen Negative Negative Hepatitis B Core IgM Antibody Negative Negative Hepatitis C Antibody Negative Negative Assessment Grand mal seizure Epileptic seizure ? Alcohol withdrawal seizure ? Stress triggered seizure PTSD, depression, anxiety, Traumatic life experience Alcoholism Plan/Recommendation Monitoring Supportive treatment Telemetry Keppra 500 mg b.i.d. Suboxone Folic acid supplementation Thiamine supplementation Ativan for seizure breakthrough We have discussed about seizure triggers She has been advised to avoid street drug, alcohol, sleep deprivation, skipping seizure medications She is knowledgeable about seizure related driving restriction More recommendation per clinical course Prognosis: Poor This medical document was created using an electronic medical record system with [employer] dictation system. Although this document has been carefully reviewed, there may still be some phonetic and typographical errors. These areas are purely typographical due to imperfections of the software programs, and do not reflect any compromise in the patient's medical care. Plan discussed with: Patient, Other BAMBI BARBOUR MD Oct 22, 2024 21:34
[2024-10-22] MEDS: levETIRAcetam 500 MG TAB PO SCH (21:41)
[2024-10-22] MEDS: traZODone HCL 50 MG TAB PO SCH (21:41)
[2024-10-22] MEDS: QUEtiapine FUMARATE 25 MG TAB PO SCH (21:41)
[2024-10-22] MEDS ORDERED: LORazepam 2MG/ML-1ML VIAL IV PRN (22:15)
[2024-10-23] VITALS (9 sets, daily range): BP systolic 95–125; BP diastolic 58–78; PULSE 63–105; RESP 14–18; TEMP 97.7–99.8; O2SAT 95–100
[2024-10-23 06:18] LABS: Basophils # (auto) 0 10 ^3/uL (0-0.2); Basophils % (auto) 0.2 % (0.0-2.0); Eosinophils # (auto) 0.1 10 ^3/uL (0-0.8); Eosinophils % (auto) 2.2 % (0.0-7.0); Hematocrit 37.2 % (36.0-46.0); Hemoglobin 12.4 g/dL (12.2-16.2); Lymphocytes # (auto) 2.7 10 ^3/uL (0.4-5.4); Lymphocytes % (auto) 49.3 % (10.0-50.0); Mean Corpuscular Hgb Conc. 33.3 g/dL (32.0-36.0); Mean Corpuscular Volume 95.9 fL (80.0-100.0); Monocytes # (auto) 0.4 10 ^3/uL (0-1.3); Monocytes % (auto) 6.7 % (0.0-12.0); Neutrophils # (auto) 2.2 10 ^3/uL (1.6-8.6); Neutrophils % (auto) 41.6 % (37.0-80.0); Nucleated Red Blood Cells % 0.1 %; Platelet Count (auto) 158 10^3/uL (140-450); Red Blood Cells 3.88 10^6/uL (4.0-5.20); Red Cell Distribution Width 13.2 % (11.8-14.3); White Blood Cell 5.4 10^3/uL (4.4-10.8)
[2024-10-23 06:28] LABS: Albumin 3.7 g/dL (3.2-4.8); Alkaline Phosphatase 57 U/L (46-116); Anion Gap 7 (5-15); BUN/Creatinine Ratio 13.2 (10.0-20.0); Calcium 9.1 mg/dL (8.7-10.4); Carbon Dioxide 28 mmol/L (20-31); Glucose 91 mg/dL (74-106); Potassium 4.2 mmol/L (3.5-5.1); Sodium 142 mmol/L (136-145)
[2024-10-23 06:29] LABS: Bilirubin, Total 0.6 mg/dL (0.2-1.0)
[2024-10-23 06:32] LABS: Alanine Aminotransferase < 9 U/L (7-40); Aspartate Aminotransferase 9 U/L (13-40); Blood Urea Nitrogen 7 mg/dL (9-23); Chloride 107 mmol/L (98-107); Total Protein 5.3 g/dL (5.7-8.2)
[2024-10-23] MEDS: THIAMINE HCL 100 MG TAB PO SCH (10:19)
[2024-10-23] MEDS: FOLIC ACID 1 MG TAB PO SCH (10:19)
[2024-10-23] MEDS: MULTIPLE VITAMIN TAB PO SCH (10:19)
[2024-10-23] MEDS: DICYCLOMINE HCL 10 MG CAP PO PRN (11:40)
[2024-10-23] MEDS ORDERED: AUG875T PO (14:54)
[2024-10-23] MEDS ORDERED: QUET50TA27 PO (14:54)
[2024-10-23] MEDS ORDERED: DICY10CA PO (14:54)
[2024-10-23] MEDS ORDERED: FLUO1TAB14 PO (14:54)
[2024-10-23] MEDS ORDERED: IBUP1TAB5 PO (14:54)
[2024-10-23] MEDS ORDERED: BUPR8MIS SL (14:54)
--- NOTE | 2024-10-23 14:59 | DVHDS2 ---
Discharge Summary Date of Admission Oct 22, 2024 at 06:56 Date of Discharge: Oct 23, 2024 Labs/Diagnostic Data: Laboratory Results Test 10/23/24 05:23 10/22/24 04:31 10/22/24 03:19 White Blood Count 5.4 10^3/uL (4.4-10.8) Red Blood Count 3.88 10^6/uL (4.0-5.20) Hemoglobin 12.4 g/dL (12.2-16.2) Hematocrit 37.2 % (36.0-46.0) Mean Corpuscular Volume 95.9 fL (80.0-100.0) Mean Corpuscular Hemoglobin 32.0 pg (28.0-32.0) Mean Corpuscular Hemoglobin Concent 33.3 g/dL (32.0-36.0) Red Cell Distribution Width 13.2 % (11.8-14.3) Platelet Count 158 10^3/uL (140-450) Mean Platelet Volume 8.8 fL (6.9-10.8) Neutrophils (%) (Auto) 41.6 % (37.0-80.0) Lymphocytes (%) (Auto) 49.3 % (10.0-50.0) Monocytes (%) (Auto) 6.7 % (0.0-12.0) Eosinophils (%) (Auto) 2.2 % (0.0-7.0) Basophils (%) (Auto) 0.2 % (0.0-2.0) Neutrophils # (Auto) 2.2 10 ^3/uL (1.6-8.6) Lymphocytes # (Auto) 2.7 10 ^3/uL (0.4-5.4) Monocytes # (Auto) 0.4 10 ^3/uL (0-1.3) Eosinophils # (Auto) 0.1 10 ^3/uL (0-0.8) Basophils # (Auto) 0 10 ^3/uL (0-0.2) Nucleated Red Blood Cells 0.1 % Sodium Level 142 mmol/L (136-145) Potassium Level 4.2 mmol/L (3.5-5.1) Chloride Level 107 mmol/L (98-107) Carbon Dioxide Level 28 mmol/L (20-31) Anion Gap 7 (5-15) Blood Urea Nitrogen 7 mg/dL (9-23) Creatinine 0.53 mg/dL (0.550-1.02) Glomerular Filtration Rate Calc 132 mL/min (>90) BUN/Creatinine Ratio 13.2 (10.0-20.0) Serum Glucose 91 mg/dL (74-106) Calcium Level 9.1 mg/dL (8.7-10.4) Total Bilirubin 0.6 mg/dL (0.2-1.0) Aspartate Amino Transferase (AST) 9 U/L (13-40) Alanine Aminotransferase (ALT) < 9 U/L (7-40) Alkaline Phosphatase 57 U/L (46-116) Total Protein 5.3 g/dL (5.7-8.2) Albumin 3.7 g/dL (3.2-4.8) Urine Color Yellow (Yellow) Urine Clarity Turbid (Clear) Urine pH 6.5 (5.0-9.0) Urine Specific [place] 1.031 (1.001-1.035) Urine Protein 1+ (Negative) Urine Ketones Trace (Negative) Urine Blood 1+ /uL (Negative) Urine Nitrite Negative (Negative) Urine Bilirubin Negative (Negative) Urine Urobilinogen 2 mg/dL (Negative) Urine Leukocyte Esterase Negative /uL (Negative) Urine RBC 6 /hpf (0 - 4) Urine Microscopic WBC 3 /HPF (0-5) Urine Squamous Epithelial Cells Mod /hpf (<5) Urine Calcium Oxalate Crystals Few (None Seen) Urine Bacteria Few /hpf (None Seen) Urine Mucus Moderate (None Seen) Urine Glucose Normal mg/dL (Normal) Urine Test Negative (Negative) Urine Opiates Screen Neg (NEGATIVE) Urine Fentanyl Screen Pos (NEGATIVE) Urine Barbiturates Screen Neg (NEGATIVE) Urine Phencyclidine Screen Neg (NEGATIVE) Urine Amphetamines Screen Neg (NEGATIVE) Urine Benzodiazepines Screen Neg (NEGATIVE) Urine Cocaine Screen Neg (NEGATIVE) Urine Cannabinoids Screen Pos (NEGATIVE) Prothrombin Time 10.6 sec (9.3-11.8) Prothrombin Time INR 1.00 (0.9-1.15) Lactic Acid Level 1.9 mmol/L (0.4-2.0) Magnesium Level 2.1 mg/dL (1.6-2.6) Lipase 55 U/L (12-53) Plasma/Serum Blood Alcohol < 3.0 mg/dL (<10) Hepatitis A IgM Antibody Negative Hepatitis B Surface Antigen Negative (Negative) Hepatitis B Core IgM Antibody Negative (Negative) Hepatitis C Antibody Negative (Negative) Other Laboratory Tests 10/23/24 05:23 Brief Hx & Hospital Course: HPI: 24-year-old female with past medical history of seizures and anxiety who presents to the ED with abdominal pain, nausea, vomiting, and diarrhea with fentanyl withdrawals with the last 4 days. Patient reports that pain medication makes it better. Patient reports that the pain is anywhere from 4 to 10/10 throbbing contraction like and constant. Patient also reports that she has been 3 weeks clean from fentanyl and was only given a limited supply of Suboxone and she has been out since 4 days ago. Patient reports that she got it at the clinic/facility where she was at. Patient reports that she is currently homeless. She also states that she is taking Keppra on and off and when she runs out it refills but her pharmacy is located in [place]. She also reports that she does not know when the last seizure occurred. Patient also reports that she drinks about 6 shots of liquor per day. She also reports that her emesis and stool are bloody. She states that she has been having diarrhea yellowish in color with blood for 4 days. Patient denies any chest pain, shortness of breath, fever, chills, recent trauma or injury, lightheadedness, weakness, dizziness, recent sick contacts, and recent ingestion of spoiled food. Summary: On presentation patient has leukocytosis 16.4, neutrophilia 84.5%, mild elevation of lipase 55, UA concentrated with SG 1.031, +1 protein, +1 blood, urobilinogen 2, UDS positive for fentanyl and THC, serum alcohol negative, acute hepatitis panel negative, tachycardia 108, tachypnea 22, blood pressure stable. CT abdomen pelvis concerning for colitis. Patient declined drug abuse but UDS positive. She recently underwent rehab and may have had a relapse. Telepsych consulted for refill of Suboxone which was not done. Psych instead recommends increased dose Seroquel and start Prozac. Patient improving after fluid hydration and continue Suboxone at home meds. Plan made to continue treatment outpatient with p.o. medication as per plan below. Diagnosis: Colitis due to Gastroenteritis, infectious etiology likely Opiate withdrawal Opiate addiction, relapse likely opioid dependence P.o. intolerance Intractable diarrhea History of fentanyl abuse, ongoing Suboxone therapy History of seizures History of anxiety PTSD Discharge plan: - take Augmentin 875 mg twice daily for next 5 days - Refill for Suboxone for 2 weeks' supply, no refills - Patient to set up addiction Psychiatry/Suboxone Clinic follow up as soon as possible for further Suboxone refills - advised and counseled to continue refraining from further drug abuse - for pain okay to use Tylenol as 1st line, ibuprofen as 2nd line( ibuprofen 600 prescription sent ), can use Bentyl thereafter for cramps - Per psychiatry recommendations take Prozac 20 mg every morning and increase Seroquel to 100 mg ( 2 tablets daily ) - stop trazodone - Continue other home medications ( gabapentin, hydroxyzine, Keppra) - Set up PCP near primary residence and follow up with PCP for discharge review Condition at Discharge: Fair Final Diagnosis/Problems List Colitis due to Gastroenteritis, infectious etiology likely Opiate withdrawal Opiate addiction, relapse likely opioid dependence P.o. intolerance Intractable diarrhea History of fentanyl abuse, ongoing Suboxone therapy History of seizures History of anxiety PTSD Discharge Disposition: Home Discharge Instruct/Medications Diet: Regular Activity: No Restrictions, As Tolerated Follow Up/Referral: pcp Medications: below Discharge Statement: "Patient was advised to return to the ER or call 911 if any headaches, dizziness, shortness of breath, chest pain, abdominal pain, bleeding, fevers, or worsening of medical condition. Patient was counseled about treatment plan, medications, possible side effects, patientverbalized understanding. All questions were answered to the best of my ability. This discharge took greater then 30 minutes in planning, reviewing documentation, counseling the patient, and discussing with other team members." Date of Service: Oct 23, 2024 Billing Provider: HI RAHMAN MD Common Visit Codes: 61561-QIX/OBS DISCH DAY >30min IH RAHMAN MD Oct 23, 2024 14:59
[2024-10-23] MEDS: KETOROLAC TROMETH 30 MG/ML 1ML VIAL IV PRN (15:39)
--- NOTE | 2024-10-23 20:44 | DVHPN2 ---
Progress Note - Dictate Date Seen: Oct 23, 2024 Medical Necessity Reason Pt with a Central, PICC or Fol: No Subjective Ms. Pedroza is a 24 years old right-handed female with a history of anxiety, depression, PTSD, bipolar disorder, she came [facility] the [facility] on 10[facility]22[facility]24 with a chief complaint of abdominal pain, diarrhea, and she was had nausea and vomiting in the emergency room, the patient alos has a history of seizure I have seen and examined the patient was, talked to her nurse, she was doing fine, no seizure or new problems UDS, 10/22/2024: Fentanyl, cannabinoids Plasma alcohol, 10/22/2024: <3 Urinalysis, 10/23/2019: WBC: Three, urine leukocyte esterase: Negative WBC/HB/PLT/MCV, 10/22/2024: 16.4/15.2/244/95.5 CMP, 11/08/2024: Unremarkable Hepatitis panel, 08/24/24: Negative vital signs Vital Sign Date Time Temp Pulse Resp B/P (MAP) Pulse Ox O2 Delivery O2 Flow Rate FiO2 10/23/24 19:57 16 Room Air* 0 21 10/23/24 17:08 98.5 90 112/78 (89) 99 98.5 Total Intake and Output 10/22/24 10/22/24 10/23/24 14:59 22:59 06:59 Intake Total 700 ml 1060 ml 800 ml Balance 700 ml 1060 ml 800 ml medications Current Medications Medications Dose Ordered Sig/[place] Route Start Time Stop Time Status Last Admin Dose Admin Sodium Chloride 1,000 ml @ 100 mls/hr Q10H IV 10/22/24 06:45 10/23/24 15:39 100 MLS/HR Ondansetron HCl 4 mg Q4HP PRN IV 10/22/24 06:45 Acetaminophen 650 mg Q6HP PRN PO 10/22/24 06:45 Thiamine HCl 100 mg DAILY PO 10/23/24 10:00 10/23/24 10:19 100 MG Folic Acid 1 mg DAILY PO 10/23/24 10:00 10/23/24 10:19 1 MG Multivitamins 1 tab DAILY PO 10/23/24 10:00 10/23/24 10:19 1 TAB Pantoprazole Sodium 40 mg DAILY IV 10/22/24 10:00 10/23/24 10:19 40 MG Buprenorphine HCl 1 tab DAILY SL 10/22/24 10:00 10/23/24 10:21 1 TAB Ampicillin Sodium/ Sulbactam Sodium 3 gm/Sodium Chloride 100 ml @ 100 mls/hr Q6H IV 10/22/24 12:45 10/23/24 18:38 100 MLS/HR Gabapentin 300 mg TID PO 10/22/24 14:00 10/23/24 13:59 300 MG Levetiracetam 500 mg BID PO 10/22/24 22:00 10/23/24 10:19 500 MG Trazodone HCl 50 mg HS PO 10/22/24 22:00 10/22/24 21:41 50 MG Quetiapine Fumarate 50 mg HS PO 10/22/24 22:00 10/22/24 21:41 50 MG Ibuprofen 600 mg Q8HP PRN PO 10/22/24 13:00 Ketorolac Tromethamine 30 mg Q6HPRN PRN IV 10/22/24 13:00 10/27/24 12:59 10/23/24 15:39 30 MG Dicyclomine HCl 20 mg Q6H PRN PO 10/22/24 13:00 10/23/24 11:40 20 MG Cyclobenzaprine HCl 10 mg Q8HPRN PRN PO 10/22/24 13:00 Lorazepam 1 mg Q5MINP PRN IV 10/22/24 22:15 objective The patient is alert and is oriented x3, Cranial nerves II through XII: pupils are equal round and reactive to light briskly, normal external eye movement, normal sensation and motor examination in the lateral trigeminal nerve distribution, no facial weakness. Motor examination: Normal mouse bulk and tone, muscle strength is normal Sensory examination: Unremarkable to pinprick and light touch Reflexes: Symmetric and without pathologic reflexes CEREBELLAR/COORDINATION: Finger to nose and heel to mark are normal bilaterally. GAIT/STATION: deferred. laboratory and microbiology Laboratory Tests 10/23/24 05:23 Test 10/23/24 05:23 Range/Units Serum Glucose 91 74-106 mg/dL Problem List Grand mal seizure Epileptic seizure ? Alcohol withdrawal seizure ? Stress triggered seizure PTSD, depression, anxiety, Traumatic life experience Alcoholism Assessment/Plan Monitoring Supportive treatment Telemetry Keppra 500 mg b.i.d. Suboxone Folic acid supplementation Thiamine supplementation Ativan for seizure breakthrough We have discussed about seizure triggers She has been advised to avoid street drug, alcohol, sleep deprivation, skipping seizure medications She is knowledgeable about seizure related driving restriction More recommendation per clinical course This medical document was created using an electronic medical record system with [employer] dictation system. Although this document has been carefully reviewed, there may still be some phonetic and typographical errors. These areas are purely typographical due to imperfections of the software programs, and do not reflect any compromise in the patient's medical care. Prognosis poor Plan discussed with: Patient, Other BAMBI BARBOUR MD Oct 23, 2024 20:44
[2024-10-24 01:00] VITALS: BP 99/54; PULSE 72; RESP 17; TEMP 97.8; O2SAT 99
[2024-10-24 05:00] VITALS: BP 101/51; PULSE 77; RESP 16; TEMP 97.6; O2SAT 96
[2024-10-24 08:00] VITALS: PULSE 63
[2024-10-24 09:00] VITALS: BP 111/76; PULSE 66; RESP 18; TEMP 97.4; O2SAT 97
[2024-10-24 13:00] VITALS: BP 99/75; PULSE 79; RESP 16; TEMP 98.4; O2SAT 96
--- NOTE | 2024-10-24 13:46 | DVHPN2 ---
Reviewed: H&P Changes from previous H/P or p: No Changes General: Per HPI Objective Vitals Vital Signs Date Time Temp Pulse Resp B/P (MAP) Pulse Ox O2 Delivery O2 Flow Rate FiO2 10/24/24 13:00 98.4 79 16 99/75 (83) 96 98.4 10/24/24 08:00 Room Air* 0 21 Intake/Output Intake and Output 10/24/24 07:00 Intake Total 3000 ml Balance 3000 ml Intake Oral 2700 ml IV Total 300 ml # Voids 3 Medications Current Medications Medications Dose Ordered Sig/[place] Route Start Time Stop Time Status Last Admin Dose Admin Sodium Chloride 1,000 ml @ 100 mls/hr Q10H IV 10/22/24 06:45 10/23/24 15:39 100 MLS/HR Ondansetron HCl 4 mg Q4HP PRN IV 10/22/24 06:45 Acetaminophen 650 mg Q6HP PRN PO 10/22/24 06:45 Thiamine HCl 100 mg DAILY PO 10/23/24 10:00 10/24/24 10:29 100 MG Folic Acid 1 mg DAILY PO 10/23/24 10:00 10/24/24 10:29 1 MG Multivitamins 1 tab DAILY PO 10/23/24 10:00 10/24/24 10:29 1 TAB Pantoprazole Sodium 40 mg DAILY IV 10/22/24 10:00 10/24/24 10:29 40 MG Buprenorphine HCl 1 tab DAILY SL 10/22/24 10:00 10/24/24 10:31 1 TAB Ampicillin Sodium/ Sulbactam Sodium 3 gm/Sodium Chloride 100 ml @ 100 mls/hr Q6H IV 10/22/24 12:45 10/24/24 12:19 100 MLS/HR Gabapentin 300 mg TID PO 10/22/24 14:00 10/24/24 05:15 300 MG Levetiracetam 500 mg BID PO 10/22/24 22:00 10/24/24 10:29 500 MG Trazodone HCl 50 mg HS PO 10/22/24 22:00 10/23/24 21:40 50 MG Quetiapine Fumarate 50 mg HS PO 10/22/24 22:00 10/23/24 21:40 50 MG Ibuprofen 600 mg Q8HP PRN PO 10/22/24 13:00 Ketorolac Tromethamine 30 mg Q6HPRN PRN IV 10/22/24 13:00 10/27/24 12:59 10/23/24 15:39 30 MG Dicyclomine HCl 20 mg Q6H PRN PO 10/22/24 13:00 10/24/24 07:47 20 MG Cyclobenzaprine HCl 10 mg Q8HPRN PRN PO 10/22/24 13:00 Lorazepam 1 mg Q5MINP PRN IV 10/22/24 22:15 Laboratory Results Laboratory Tests 10/23/24 05:23 Urinalysis Test 10/22/24 04:31 Urine Color Yellow (Yellow) Urine Clarity Turbid (Clear) H Urine pH 6.5 (5.0-9.0) Urine Specific [place] 1.031 (1.001-1.035) Urine Protein 1+ (Negative) H Urine Ketones Trace (Negative) Urine Blood 1+ /uL (Negative) H Urine Nitrite Negative (Negative) Urine Bilirubin Negative (Negative) Urine Urobilinogen 2 mg/dL (Negative) H Urine Leukocyte Esterase Negative /uL (Negative) Urine RBC 6 /hpf (0 - 4) Urine Microscopic WBC 3 /HPF (0-5) Urine Squamous Epithelial Cells Mod /hpf (<5) Urine Calcium Oxalate Crystals Few (None Seen) Urine Bacteria Few /hpf (None Seen) H Urine Mucus Moderate (None Seen) Urine Glucose Normal mg/dL (Normal) Urine Test Negative (Negative) Microbiology Microbiology Date/Time Source Procedure Growth Status 10/22/24 12:51 Nose MRSA Screen - Final Complete Labs and/or images reviewed: Labs reviewed by me, Image(s) reviewed by me Assessment/Plan Assessment/Plan Patient discharged yesterday waiting for the prescription for Suboxone was given handwritten prescription Plan discussed with: Patient, Other (RN Summer) Date of Service: Oct 24, 2024 Billing Provider: DENISSE BRAXTON MD Common Visit Codes: [id number] INP/OBS CARE(HIGH) DENISSE BRAXTON MD Oct 24, 2024 13:46
== END 2024-10-24 15:13 | disposition home or self-care (01) | DRG 53 ==
LOC: ER 02:48 → OVERFLOW 06:56 → TELE-EAST 18:08
PROVIDERS: ADMIT Student in an Organized Health Care Education/Training Program; ATTEND Student in an Organized Health Care Education/Training Program
DX: G40.409 Other generalized epilepsy and epileptic syndromes, not intractable, without status epilepticus (principal); R65.10 Systemic inflammatory response syndrome (SIRS) of non-infectious origin without acute organ dysfunction; A09 Infectious gastroenteritis and colitis, unspecified; F11.23 Opioid dependence with withdrawal; F41.9 Anxiety disorder, unspecified; F43.10 Post-traumatic stress disorder, unspecified; F31.9 Bipolar disorder, unspecified; F10.20 Alcohol dependence, uncomplicated; Z91.199 Patient's noncompliance with other medical treatment and regimen due to unspecified reason; Z59.00 Homelessness unspecified; Z91.51 Personal history of suicidal behavior; Z79.899 Other long term (current) drug therapy
CPT/HCPCS: 36415; 74177; 80053; 80074; 80307; 80320; 81001; 81025; 82247; 83605; 83690; 83735; 85025; 85610; 87081; G0378; J0131; J1885; J2405; J2470; J2543